=== PATIENT | male | born 1995 | race Caucasian/White ===

== ENCOUNTER 2023-08-21 13:15 | Outpatient (CLI) | payer OTHER ==
--- NOTE | 2023-08-22 08:43 | XRAY Report ---
PROCEDURE: Hand 3+V LT INDICATIONS: CONTUSION OF LEFT HAND TECHNIQUE: 3 views of the hand(s) acquired. COMPARISON: None. FINDINGS: Bones: There is comminuted fracture involving the proximal fourth metacarpal shaft with minimal disp lacement. Question nondisplaced fifth proximal phalangeal fracture. No suspicious bony lesions. Soft tissues: No suspicious soft tissue calcifications or masses. IMPRESSION: 1. Minimally displaced fourth metacarpal shaft fracture. 2. Question nondisplaced fourth proximal phalangeal fracture. Recommend a follow-up exam in 7-10 10 d ays. Reviewed by: Francis Francis MD on 08/22/2023 7:41 AM DANIEL Approved by: Francis Francis MD on 08/22/2023 7:41 AM AKCAROL Station ID: [id number]
== END 2023-08-21 14:00 | disposition home or self-care (01) ==
LOC: DI.N 13:15
PROVIDERS: ATTEND Physician Assistant
DX: S62.325A Displaced fracture of shaft of fourth metacarpal bone, left hand, initial encounter for closed fracture (principal)

== ENCOUNTER 2023-08-30 11:32 | Outpatient (CLI) | payer OTHER ==
--- NOTE | 2023-08-30 17:15 | XRAY Report ---
PROCEDURE: Hand 3+V LT INDICATIONS: HAND PAIN, LEFT TECHNIQUE: 3 views of the hand(s) acquired. COMPARISON: None. FINDINGS: Bones: Displaced fourth metacarpal and displaced fifth left proximal phalangeal fractures are redemo nstrated. Fracture fragments are in unchanged anatomic alignment when compared with the study dated . No callus yet visualized. Soft tissues: No suspicious soft tissue calcifications or masses. IMPRESSION: Stable left fourth metacarpal and left fifth proximal phalangeal fractures. Reviewed by: Nini Preston MD on 08/30/2023 5:14 PM PDT Approved by: Nini Preston MD on 08/30/2023 5:14 PM PDT Station ID: [id number]
== END 2023-08-30 11:33 | disposition home or self-care (01) ==
LOC: DI.N 11:32
PROVIDERS: ATTEND Orthopaedic Surgery
DX: S62.395A Other fracture of fourth metacarpal bone, left hand, initial encounter for closed fracture (principal); S62.617A Displaced fracture of proximal phalanx of left little finger, initial encounter for closed fracture

== ENCOUNTER 2023-10-05 10:25 | Outpatient (CLI) | payer OTHER ==
--- NOTE | 2023-10-05 17:10 | XRAY Report ---
Hand 3+V LT HISTORY: 28 years of age, NONDISP FX OF SHAFT OF FOURTH MC BONE, LEFT HAND, TECHNIQUE: Hand 3+V LT COMPARISON: 08/30/2023. FINDINGS/IMPRESSION: Healing, mildly comminuted nondisplaced fracture of the fourth metacarpal, in unchanged alignment. Reviewed by: Jaqueline Kothari MD on 10/05/2023 5:09 PM PDT Approved by: Jaqueline Kothari MD on 10/05/2023 5:09 PM PDT Station ID: [id number]
== END 2023-10-05 10:26 | disposition home or self-care (01) ==
LOC: DI 10:25
PROVIDERS: ATTEND Orthopaedic Surgery
DX: S62.305D Unspecified fracture of fourth metacarpal bone, left hand, subsequent encounter for fracture with routine healing (principal)